=== PATIENT | female | born 2000 | race African-American/Black ===

== ENCOUNTER 2018-01-23 00:46 | Emergency (ER) | payer SELFPAY ==
[~2018-01-23] VITALS: Ht 157.5 cm; Wt 60.0 kg
[~2018-01-23 00:46] MED LIST: IBUP600 PO
[2018-01-23 00:56] VITALS: BP 101/61; PULSE 64; RESP 16; TEMP 97.9; O2SAT 100
== END 2018-01-23 01:30 | disposition left against medical advice (07) ==
LOC: NETRI 00:46
DX: K08.89 Other specified disorders of teeth and supporting structures (principal); Z53.21 Procedure and treatment not carried out due to patient leaving prior to being seen by health care provider
CPT/HCPCS: 99281